=== PATIENT | male | born 1995 | race African-American/Black ===

== ENCOUNTER 2018-02-12 14:29 | Emergency (ER) | payer SELFPAY ==
[~2018-02-12] VITALS: Ht 177.8 cm; Wt 63.5 kg
[2018-02-12 14:29] VITALS: BP 127/78
[2018-02-12] MEDS ORDERED: TETRACAINE HCL/PF 0.5% UD 2 ML BOTTLE ONE (15:27)
[2018-02-12] MEDS ORDERED: FLUORESCEIN SODIUM OPHTH 1 EA STRIP ONE (15:27)
[2018-02-12] MEDS ORDERED: FLUORESCEIN SODIUM OPHTH 1 EA STRIP OP ONE (15:30)
[2018-02-12] MEDS ORDERED: TETRACAINE HCL 0.5% OPHTALMIC 15 ML BOTTLE OP ONE (15:30)
== END 2018-02-12 16:33 | disposition home or self-care (01) ==
LOC: ER 14:32
DX: H10.211 Acute toxic conjunctivitis, right eye (principal)
CPT/HCPCS: A4606; Z7610